=== PATIENT | female | born 1960 ===

== ENCOUNTER 2020-11-24 11:05 | Outpatient (CLI) | payer OTHER, SELFPAY | END 2020-11-24 11:06 | disposition home or self-care (01) | LOC: ANHCOVIDVC 11:06 | PROVIDERS: PCP Internal Medicine Gastroenterology | DX: Z23 Encounter for immunization (principal) | CPT/HCPCS: 0001A; 91300 ==

== ENCOUNTER 2020-12-15 10:19 | Outpatient (CLI) | payer OTHER, SELFPAY | END 2020-12-15 10:20 | disposition home or self-care (01) | LOC: ANHCOVIDVC 10:19 | PROVIDERS: PCP Internal Medicine Gastroenterology | DX: Z23 Encounter for immunization (principal) | CPT/HCPCS: 0002A; 91300 ==